=== PATIENT | male | born 1930 | race Caucasian/White ===

== ENCOUNTER 2020-10-11 08:57 | Emergency (ER) | payer MEDICARE, BC ==
[2020-10-11] MEDS ORDERED: SODIUM CHLORIDE 0.9% 1,000 ML IV STA ×2 (09:02)
[2020-10-11 09:08] VITALS: TEMP 98.4
--- NOTE | 2020-10-11 09:08 | ED ---
Syncope HPI - General Stated Complaint: Syncope Time Seen by Provider: 10/11/20 08:57 Source: patient, EMS, RN notes reviewed, old records reviewed Mode of arrival: EMS - History of Present Illness Initial Comments: This is a 89-year-old male who was at work states he was eating a doughnut when he became very dizzy and passed out for about 2-3 minutes. He did wake up he vomited and states he felt much better. EMS was summoned he was found have a blood pressure in the 80s systolic and an irregular heartbeat pale. Initially refused transport to this facility he did finally volunteer to come. He states he currently he feels good he does normally morning just drink coffee no other fluids he denies any headache dizziness blurry vision nausea vomiting or other symptoms at this present time. No focal weakness. He does have a history of skin cancer with radiation therapy recently. No other current complaints modifying factors MD Complaint: loss of consciousness - Related Data Home Medications Medication Instructions Recorded Confirmed Acetaminophen Tab [Tylenol Tab] 500 mg PO Q6H PRN 10/11/20 10/11/20 Finasteride [Proscar] 5 mg PO DAILY 10/11/20 10/11/20 Lisinopril-Hctz 20-25 mg 1 tab PO DAILY 10/11/20 10/11/20 [Zestoretic 20-25] Simvastatin [Zocor] 40 mg PO HS 10/11/20 10/11/20 atenoloL [Atenolol] 25 mg PO DAILY 10/11/20 10/11/20 Allergies Allergy/AdvReac Type Severity Reaction Status Date / Time No Known Allergies Allergy Verified 10/11/20 10:18 Review of Systems ROS Statement: Those systems with pertinent positive or pertinent negative responses have been documented in the HPI. ROS Other: All systems not noted in ROS Statement are negative. General Exam - General Exam Comments Initial Comments: This a well-developed well-nourished awake alert oriented times 3 male General appearance: alert, in no apparent distress Head exam: Present: atraumatic, normocephalic, normal inspection Eye exam: Present: normal appearance, PERRL, EOMI. Absent: scleral icterus, conjunctival injection, periorbital swelling ENT exam: Present: mucous membranes dry Neck exam: Present: normal inspection. Absent: tenderness, meningismus, lymphadenopathy Respiratory exam: Present: normal lung sounds bilaterally. Absent: respiratory distress, wheezes, rales, rhonchi, stridor Cardiovascular Exam: Present: regular rate, normal rhythm, normal heart sounds. Absent: systolic murmur, diastolic murmur, rubs, gallop, clicks GI/Abdominal exam: Present: soft, normal bowel sounds. Absent: distended, tenderness, guarding, rebound, rigid Extremities exam: Present: normal inspection, full ROM, normal capillary refill. Absent: tenderness, pedal edema, joint swelling, calf tenderness Back exam: Present: normal inspection Neurological exam: Present: alert, oriented X3, CN II-XII intact Psychiatric exam: Present: normal affect, normal mood Skin exam: Present: warm, dry, intact, normal color. Absent: rash Course Vital Signs 10/11/20 10/11/20 10/11/20 09:01 09:03 09:08 Temperature 98.4 F Pulse Rate 63 59 L 60 Respiratory 19 18 Rate Blood Pressure 114/67 96/62 O2 Sat by Pulse 98 100 Oximetry 10/11/20 10/11/20 10/11/20 09:30 10:00 10:13 Temperature Pulse Rate 57 L 61 58 L Respiratory 18 Rate Blood Pressure 96/62 94/66 104/60 O2 Sat by Pulse 100 71 L 97 Oximetry 10/11/20 10/11/20 10/11/20 10:30 11:00 11:30 Temperature Pulse Rate 58 L 60 60 Respiratory Rate Blood Pressure 104/60 110/60 110/62 O2 Sat by Pulse 96 98 100 Oximetry 10/11/20 10/11/20 10/11/20 12:00 13:00 13:30 Temperature Pulse Rate 60 60 Respiratory Rate Blood Pressure 110/74 O2 Sat by Pulse Oximetry 10/11/20 14:00 Temperature Pulse Rate 83 Respiratory 22 Rate Blood Pressure 141/83 O2 Sat by Pulse Oximetry - Reevaluation(s) Reevaluation #1: 10/11/20 09:07 Review the EMS rhythm strips reveal possible atrial abnormality Reevaluation #2: 10/11/20 12:33 I did discuss the initial findings with the patient and his family was present through the findings and I did suggest admission to the patient he is refusing to sign but he has agreed to a ventilation perfusion scan is in process. Reevaluation #3: 10/11/20 14:07 Patient is able ably without difficulty with no symptoms other than slight short of breath as he was walking very rapidly around the emergency department. EKG Findings - EKG Results: EKG: interpreted by STEFANIA GORDILLO, sinus rhythm, normal axis, normal QRS, normal ST/T, no acute changes (Normal sinus rhythm a 63. Interval 184 QRS duration 82 QT since QTC 420/[address]-T wave changes) Medical Decision Making - Medical Decision Making I did have a long discussion with the patient and his family member, multiple occasions the patient demonstrating reasonable decision making capacity refuses to stay for inpatient evaluation which I did recommend. He was able ambulate around the emergency department with slight shortness breath as he was walking falls.. No chest pain no palpitations no dizziness or lightheadedness. We did discuss return parameters he was invited back at any time if is any question. He otherwise is encouraged to follow-up with his doctors at the [facility] in [place]. - Lab Data Result diagrams: 10/11/20 09:21 10/11/20 09:21 Lab Results 10/11/20 10/11/20 10/11/20 Range/Units 09:21 09:21 09:21 WBC 8.5 (3.8-10.6) k/uL RBC 4.02 L (4.30-5.90) m/uL Hgb 13.6 (13.0-17.5) gm/dL Hct 42.9 (39.0-53.0) % MCV 106.8 H (80.0-100.0) fL MCH 33.9 (25.0-35.0) pg MCHC 31.8 (31.0-37.0) g/dL RDW 13.8 (11.5-15.5) % Plt Count 279 (150-450) k/uL MPV 7.7 Neutrophils % 70 % Lymphocytes % 23 % Monocytes % 3 % Eosinophils % 2 % Basophils % 1 % Neutrophils # 6.0 (1.3-7.7) k/uL Lymphocytes # 2.0 (1.0-4.8) k/uL Monocytes # 0.2 (0-1.0) k/uL Eosinophils # 0.2 (0-0.7) k/uL Basophils # 0.1 (0-0.2) k/uL Macrocytosis Moderate PT 11.5 (9.0-12.0) sec INR 1.1 (<1.2) APTT 25.3 (22.0-30.0) sec D-Dimer 3.68 H (<0.60) mg/L FEU Sodium 139 (137-145) mmol/L Potassium 4.0 (3.5-5.1) mmol/L Chloride 104 (98-107) mmol/L Carbon Dioxide 23 (22-30) mmol/L Anion Gap 12 mmol/L BUN 50 H (9-20) mg/dL Creatinine 1.76 H (0.66-1.25) mg/dL Est GFR (CKD-EPI)AfAm 39 (>60 ml/min/1.73 sqM) Est GFR (CKD-EPI)NonAf 34 (>60 ml/min/1.73 sqM) Glucose 139 H (74-99) mg/dL Calcium 9.2 (8.4-10.2) mg/dL Magnesium 1.5 L (1.6-2.3) mg/dL Total Bilirubin 2.0 H (0.2-1.3) mg/dL AST 58 (17-59) U/L ALT 57 H (4-49) U/L Alkaline Phosphatase 456 H (38-126) U/L Creatine Kinase 42 L (55-170) U/L Troponin I (0.000-0.034) ng/mL Total Protein 7.2 (6.3-8.2) g/dL Albumin 3.6 (3.5-5.0) g/dL TSH 9.630 H (0.465-4.680) mIU/L 10/11/20 Range/Units 09:21 WBC (3.8-10.6) k/uL RBC (4.30-5.90) m/uL Hgb (13.0-17.5) gm/dL Hct (39.0-53.0) % MCV (80.0-100.0) fL MCH (25.0-35.0) pg MCHC (31.0-37.0) g/dL RDW (11.5-15.5) % Plt Count (150-450) k/uL MPV Neutrophils % % Lymphocytes % % Monocytes % % Eosinophils % % Basophils % % Neutrophils # (1.3-7.7) k/uL Lymphocytes # (1.0-4.8) k/uL Monocytes # (0-1.0) k/uL Eosinophils # (0-0.7) k/uL Basophils # (0-0.2) k/uL Macrocytosis PT (9.0-12.0) sec INR (<1.2) APTT (22.0-30.0) sec D-Dimer (<0.60) mg/L FEU Sodium (137-145) mmol/L Potassium (3.5-5.1) mmol/L Chloride (98-107) mmol/L Carbon Dioxide (22-30) mmol/L Anion Gap mmol/L BUN (9-20) mg/dL Creatinine (0.66-1.25) mg/dL Est GFR (CKD-EPI)AfAm (>60 ml/min/1.73 sqM) Est GFR (CKD-EPI)NonAf (>60 ml/min/1.73 sqM) Glucose (74-99) mg/dL Calcium (8.4-10.2) mg/dL Magnesium (1.6-2.3) mg/dL Total Bilirubin (0.2-1.3) mg/dL AST (17-59) U/L ALT (4-49) U/L Alkaline Phosphatase (38-126) U/L Creatine Kinase (55-170) U/L Troponin I <0.012 (0.000-0.034) ng/mL Total Protein (6.3-8.2) g/dL Albumin (3.5-5.0) g/dL TSH (0.465-4.680) mIU/L - Radiology Data Radiology results: report reviewed (Imaging reviewed evidence of VQ scan shows low probability for PE.), image reviewed Critical Care Time Critical Care Time: Yes Total Critical Care Time: 31 Critical Care Time: Clinical care time including initial presentation with history physical labs x- rays multiple reevaluation the patient multiple discussions with the patient family the alternatives available documentation of the above Disposition Clinical Impression: Syncope, Renal insufficiency syndrome, Hypothyroid, Elevated d-dimer Disposition: HOME SELF-CARE Condition: Stable Is patient prescribed a controlled substance at d/c from ED?: No Referrals: [facility],Clinic [Primary Care Provider] - 1-2 days
[2020-10-11 09:34] LABS: Basophils # (A) 0.1 k/uL (0-0.2); Basophils % (A) 1 %; Eosinophils # (A) 0.2 k/uL (0-0.7); Eosinophils % (A) 2 %; HCT 42.9 % (39.0-53.0); HGB 13.6 gm/dL (13.0-17.5); Lymphocytes % (A) 23 %; MCH 33.9 pg (25.0-35.0); MCHC 31.8 g/dL (31.0-37.0); MCV 106.8 fL (80.0-100.0); Macrocytosis Moderate; Mean Platelet Volume 7.7; Monocytes # (A) 0.2 k/uL (0-1.0); Monocytes % (A) 3 %; Neutrophils % (A) 70 %; Platelet Count 279 k/uL (150-450); RBC 4.02 m/uL (4.30-5.90); RDW 13.8 % (11.5-15.5); WBC 8.5 k/uL (3.8-10.6)
[2020-10-11 09:49] LABS: Albumin 3.6 g/dL (3.5-5.0); Calcium 9.2 mg/dL (8.4-10.2); INR 1.1 (<1.2); Magnesium 1.5 mg/dL (1.6-2.3); Partial Thromboplastin Time 25.3 sec (22.0-30.0); Prothrombin Time 11.5 sec (9.0-12.0); Total Protein 7.2 g/dL (6.3-8.2)
--- NOTE | 2020-10-11 09:59 | XR ---
EXAMINATION TYPE: XR chest 2V DATE OF EXAM: 10/11/2020 COMPARISON: None HISTORY: 89-year-old male dysrhythmia TECHNIQUE: PA and lateral views FINDINGS: Heart borderline enlarged. Mild elongation thoracic aorta. Bilateral plaque-like calcifications sugge st pleural-based calcifications. Calcifications also overlie the left hemidiaphragm. No pleural effus ion. Mild hyperinflation. IMPRESSION: 1. Borderline heart size. Underlying COPD. 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 2. Given the multiple bilateral densities and lack of prior comparisons, a subtle underlying infiltra te would need to be excluded clinically. No obvious airspace disease seen.
--- NOTE | 2020-10-11 11:03 | CT ---
EXAMINATION TYPE: CT brain wo con DATE OF EXAM: 10/11/2020 COMPARISON: None INDICATION: syncope DLP: 1099.4 mGycm, Automated exposure control for dose reduction was used. CONTRAST: None CT of the brain is performed utilizing 3 mm thick sections through the posterior fossa and 3 mm thick sections through the remaining calvarium. Study is performed within 24 hours of arrival to the hosp [facility]. No abnormal hyperdensity is present to suggest an acute intracranial hemorrhage. No mass lesion is evident. No acute infarcts are evident. There is periventricular white matter hypodensity, likely on the basis of chronic white matter ischemic changes. Ventricles and sulci are prominent for the patient age. Paranasal sinuses and mastoid air cells within the [id number] are clear. IMPRESSIONS: 1. Age-related atrophy with chronic appearing periventricular white matter ischemic changes
--- NOTE | 2020-10-11 12:50 | NM ---
EXAMINATION TYPE: NM pul vent and perfuse DATE OF EXAM: 10/11/2020 COMPARISON: Correlation radiograph same date HISTORY: 89-year-old male with shortness of breath, vertigo and syncope this morning, elevated d-dime r, suspected PE. TECHNIQUE: Utilizing inhalation of 64.5 mCi Tc 99m DTPA aerosol and intravenous injection of 5.1 mCi of Tc 99m MAA, ventilation and perfusion images are acquired post injection in multiple projections. FINDINGS: Normal radiotracer distribution is noted in the lungs. There is no evidence of mismatched defects. IMPRESSION: Very low probability for pulmonary embolus.
[2020-10-11 14:04] VITALS: BP 141/83; PULSE 83; RESP 22
== END 2020-10-11 14:26 | disposition home or self-care (01) ==
LOC: EC 08:57
DX: R55 Syncope and collapse (principal); N28.9 Disorder of kidney and ureter, unspecified; E03.9 Hypothyroidism, unspecified; R79.89 Other specified abnormal findings of blood chemistry; Z79.899 Other long term (current) drug therapy; Z85.828 Personal history of other malignant neoplasm of skin
CPT/HCPCS: 36415; 93005; 85379; 80053; 82550; 83735; 84443; 84484; 85025; 85610; 85730; 71046; 70450; 78582; 99285; A9540; A9567